=== PATIENT | male | born 1965 | race Caucasian/White ===

== ENCOUNTER 2018-10-07 19:32 | Emergency (ER) | payer BC ==
[~2018-10-07] VITALS: Ht 175.3 cm; Wt 129.3 kg
[2018-10-07] MEDS ORDERED: VERAPAMIL ER240 MG PO (19:48)
[2018-10-07] MEDS ORDERED: LEVOTHYROXINE (19:48)
[2018-10-07] MEDS ORDERED: ASPIR 8181 MG PO (19:49)
[2018-10-07] MEDS ORDERED: [UNRECOGNIZED DRUG - OTHER] (19:49)
[2018-10-07 20:24] VITALS: BP 140/90
== END 2018-10-07 20:25 | disposition home or self-care (01) ==
LOC: M.ERS 19:32
DX: S30.1XXA Contusion of abdominal wall, initial encounter (principal); I10 Essential (primary) hypertension; E03.9 Hypothyroidism, unspecified; Z88.0 Allergy status to penicillin; X58.XXXA Exposure to other specified factors, initial encounter; Y93.89 Activity, other specified; Y92.89 Other specified places as the place of occurrence of the external cause; Y99.8 Other external cause status